=== PATIENT | female | born 1935 | race Caucasian/White ===

== ENCOUNTER 2022-01-16 21:34 | Emergency (ER) | payer BC, MEDICARE ==
[2022-01-16] MEDS ORDERED: Sodium Chloride 0.9% 1,000 ML IV ONE (22:23)
[2022-01-17] MEDS ORDERED: Rivaroxaban 15 MG Tab PO STA (00:54)
== END 2022-01-17 01:45 | disposition home or self-care (01) ==
LOC: JD.ED 21:34
DX: R53.83 Other fatigue (principal); R63.0 Anorexia; R41.0 Disorientation, unspecified; I10 Essential (primary) hypertension; E03.9 Hypothyroidism, unspecified; Z79.899 Other long term (current) drug therapy; Z20.822 Contact with and (suspected) exposure to COVID-19
CPT/HCPCS: 36415; 70450; 71045; 71275; 80053; 81001; 83735; 84443; 84484; 85007; 85027; 85379; 87635; 93005; 96360; 99285; A9270; J7030; 99284; U0002